=== PATIENT | female | born 1960 ===

== ENCOUNTER → 2023-08-10 07:34 | Outpatient (REF) | payer OTHER, SELFPAY | LOC: HWRAD 07:34 | PROVIDERS: ATTENDING PHYSICIAN Family Medicine | DX: Z12.31 Encounter for screening mammogram for malignant neoplasm of breast (principal); R74.8 Abnormal levels of other serum enzymes; F10.90 Alcohol use, unspecified, uncomplicated; F17.210 Nicotine dependence, cigarettes, uncomplicated | CPT/HCPCS: 71271; 76700; 77063; 77067 ==

== ENCOUNTER → 2023-09-22 10:18 | Outpatient (REF) | payer OTHER, SELFPAY | LOC: MRI 3T 10:18 | PROVIDERS: ATTENDING PHYSICIAN Family Medicine | DX: K86.89 Other specified diseases of pancreas (principal) | CPT/HCPCS: 74183; A9575 ==